=== PATIENT | male | born 1970 | race Caucasian/White ===

== ENCOUNTER → 2021-01-02 | Outpatient (CLI) | payer BC | LOC: LAB 09:20 | PROVIDERS: ATTEND Internal Medicine Cardiovascular Disease | DX: Z01.812 Encounter for preprocedural laboratory examination (principal); Z20.822 Contact with and (suspected) exposure to COVID-19 ==

== ENCOUNTER → 2021-01-02 | Outpatient (CLI) | payer OTHER ==
[2021-01-02 10:29] LABS: CALCIUM 9.5 mg/dL (8.5-10.1); POTASSIUM 4.3 mmol/L (3.5-5.1); TOTAL BILIRUBIN 1.1 mg/dL (0.2-1.0); TOTAL PROTEIN 7.2 g/dL (6.4-8.2)
[2021-01-02 10:36] LABS: ABSOLUTE NEUTROPHILS 4.8 thou/uL (1.4-8.2); BASOPHILS 1.4 % (0.0-2.0); EOSINOPHILS 1.8 % (0.0-3.0); HEMATOCRIT 52.4 % (42.0-52.0); HEMOGLOBIN 18.1 gm/dL (14.0-18.0); LYMPHOCYTES 20.1 % (24.0-44.0); MCH 29.2 pg (26.0-34.0); MCHC 34.6 g/dL (28.0-37.0); MCV 84.5 fL (80.0-100.0); MONOCYTES 8.7 % (1.0-8.0); PLATELET COUNT 199 thou/uL (150-400); RDW 13.6 % (10.5-14.5); WBC 7.1 thou/uL (4.0-11.0)
== END ==
LOC: CAT 09:03 → LAB 15:50
PROVIDERS: ATTEND Internal Medicine Cardiovascular Disease
DX: I48.91 Unspecified atrial fibrillation (principal)

== ENCOUNTER 2021-01-05 06:20 | Observation (INO) | payer BC ==
[~2021-01-05] VITALS: Ht 180.3 cm; Wt 77.1 kg
[2021-01-05] VITALS (8 sets, daily range): BP systolic 83–108; BP diastolic 51–76
[2021-01-05 07:36] LABS: ABSOLUTE NEUTROPHILS 4.1 thou/uL (1.4-8.2); BASOPHILS 1.4 % (0.0-2.0); EOSINOPHILS 1.8 % (0.0-3.0); HEMATOCRIT 49.7 % (42.0-52.0); HEMOGLOBIN 17.2 gm/dL (14.0-18.0); LYMPHOCYTES 21.9 % (24.0-44.0); MCH 29.5 pg (26.0-34.0); MCHC 34.7 g/dL (28.0-37.0); MCV 85.1 fL (80.0-100.0); MONOCYTES 9.5 % (1.0-8.0); PLATELET COUNT 179 thou/uL (150-400); POLYS 65.4 % (36.0-66.0); RBC 5.84 mil/uL (4.50-6.00); RDW 13.3 % (10.5-14.5); WBC 6.3 thou/uL (4.0-11.0)
[2021-01-05] MEDS ORDERED: SOTALOL 120 MG120 M1 PO (07:47)
[2021-01-05 07:48] LABS: CREATININE 1.1 mg/dL (0.7-1.3)
[2021-01-05] MEDS ORDERED: WARFARIN SODIUM5 MG PO (07:48)
[2021-01-05] MEDS ORDERED: WARFARIN SODIU7.5 MG PO (07:48)
[2021-01-05 07:53] LABS: APTT 38.8 Seconds (24.5-32.8); INR 2.11; PROTIME 22.2 Seconds (10.5-12.1)
[2021-01-05 07:54] LABS: ALBUMIN 3.7 g/dL (3.4-5.0); TOTAL BILIRUBIN 0.9 mg/dL (0.2-1.0); TOTAL PROTEIN 6.7 g/dL (6.4-8.2)
--- NOTE | 2021-01-05 09:22 | TEE ---
[facility] [place] [address] TRANSESOPHAGEAL ECHOCARDIOGRAM Name: BRENNAN GARCIA [facility] [id number] Admission: 01/05/21 Attend Phys: Christophe Seaman MD, Discharge: Date of : 70 Report #: [id number] THIS REPORT FOR: cc: Erick Brooke Jeffrey W. DO Santiago, Patrick MD [facility] ~ APPROVED REPORT Study performed: 01/05/2021 08:15:04 EXAM: Transesophageal Echocardiogram Patient Location: EP LAB Status: routine BSA: 1.97 HR: 104 bpm BP: 108/76 mmHg Rhythm: NSR Other Information Study Quality: Adequate Indications Afib/Pre ablation. Hx: Aortic valve replacement Procedure After obtaining informed consent, patient underwent transesophageal echo in the EP Lab. Type of Sedation : General Anesthesia Sedation was administered by Anesthesia. Transesophageal probe was inserted and advanced into esophagus without difficulty by Christophe Seaman MD. Echo enhancement indication: R/O Septal defect. Echo enhancement agent administered: Agitated Saline The KIRTI was performed without complications. Throughout the procedure, the blood pressure, pulse oximetry, cardiac rhythm, and rate were monitored. The patient tolerated the procedure without adverse effects. Recovery from conscious sedation was uneventful and vital signs were stable. Left Ventricle The left ventricle is normal size. There is normal LV segmental wall motion. There is normal left ventricular wall thickness. Left [facility] [address] [place] [address] TRANSESOPHAGEAL ECHOCARDIOGRAM Name: BRENNAN GARCIA Room #: REG CL [facility].#: [id number] Admission: 01/05/21 Attend Phys: Christophe Seaman, Discharge: Date of : 70 Report #: [id number] ventricular systolic function is normal. LVEF is 55%. Right Ventricle The right ventricle is normal size. The right ventricular systolic function is normal. Atria Left atrium is dilated. No thrombus is visualized in the left atrium or appendage. No shunting noted with contrast bubble injection. The right atrium size is normal. Aortic Valve Mechanical aortic valve is present. Trace aortic regurgitation. Mitral Valve The mitral valve is normal in structure. There is no mitral valve regurgitation noted. No evidence of mitral valve stenosis. Tricuspid Valve The tricuspid valve is normal in structure. There is no tricuspid valve regurgitation noted. Great Vessels The aortic root is normal in size. The ascending aorta is normal in size. Pericardium There is no pericardial effusion. <Conclusion> Consent was obtained Sedation performed by the anesthesiologist in the EP lab Esophageal probe was advanced without difficulty Left atrial appendage, large, no obvious mass or clot detected. Left atrium mildly dilated Normal left ventricle size/function Ejection fraction 55% Mechanical prostheses aortic valve, adequate cusp excursion Normal mitral valve structure and function Normal tricuspid valve structure and function No evidence of tricuspid valve insufficiency Normal aortic root size [facility] [address] [place] [address] TRANSESOPHAGEAL ECHOCARDIOGRAM Name: BRENNAN GARCIA Room #: REG [facility]..#: [id number] Admission: 01/05/21 Attend Phys: Christophe Seaman, Discharge: Date of : 70 Report #: [id number] No pericardial effusion Patient tolerated procedure well <ELECTRONICALLY SIGNED> By: Christophe Seaman MD, FACMaki 01/05/21920 0 0 Christophe Seaman MD, FACC /INF
--- NOTE | 2021-01-05 13:23 | 2DMMODE ---
[address] [address] 2 D/M-MODE ECHOCARDIOGRAM Name: BRENNAN GARCIA Room #: 206-P [facility] M.R.#: [id number] Admission: 01/05/21 Attend Phys: Christophe Seaman MD, Discharge: Date of : 70 Report #: [id number] THIS REPORT FOR: cc: Erick Brooke Jeffrey W. DO Santiago, Patrick MD [facility] ~ ADDENDUM APPROVED REPORT Study performed: 01/05/2021 13:01:34 EXAM: Limited 2D Echocardiogram Patient Location: Bedside Room #: [facility] Status: KARINA BSA: 1.97 HR: 67 bpm BP: 108/76 mmHg Rhythm: NSR Other Information Study Quality: Good/Pectus Indications STAT echo to rule out pericardial effusion. Chest pain post ablation. Left Ventricle The left ventricle is normal size. There is normal LV segmental wall motion. Left ventricular systolic function is normal. LVEF is 60-65%. Right Ventricle The right ventricle is normal size. The right ventricular systolic function is normal. Atria Left atrium is mildly dilated. The right atrium size is normal. Aortic Valve Mechanical aortic valve is present. Mitral Valve The mitral valve is normal in structure. [address] [address] 2 D/M-MODE ECHOCARDIOGRAM Name: BRENNAN GARCIA Room #: 206-P [facility] M.R.#: [id number] Admission: 01/05/21 Attend Phys: Christophe Seaman, Discharge: Date of : 70 Report #: [id number] Tricuspid Valve The tricuspid valve is normal in structure. Pulmonic Valve The pulmonary valve is normal in structure. Great Vessels IVC is normal in size and collapses <50% with inspiration. Pericardium There is no pericardial effusion. <Conclusion> Normal left ventricular size/wall thickness Ejection fraction 60% Normal right ventricular size/function Left atrium mildly dilated Mechanical aortic valve prostheses Normal mitral valve structure Normal aortic root size Normal IVC size and response to respiration No pericardial effusion <ELECTRONICALLY SIGNED> By: Christophe Seaman MD, FACC 01/05/21 1322 132 21 Christophe Seaman MD, FACC /INF
--- NOTE | 2021-01-05 15:56 | EKG ---
[place] [address] [facility] [place] [address] ELECTROCARDIOGRAM REPORT Name: BRENNAN GARCIA Room #: 206-[facility] M.R.#: [id number] Admission: 01/05/21 Attend Phys: Christophe Seaman MD, Discharge: Date of : 70 Report #: [id number] [facility] Test Date: 2021-01-05 Test Time: 13:00:57 Pat Name: BRENNAN GARCIA Department: Room: [facility] Gender: M [employer]: GEN : 1970 Requested By: Tab Florence Order Number: [id number] MD: Christophe Seaman Measurements Intervals [place] Rate: 68 P: 23 WV: 202 QRS: -13 QRSD: 93 T: 33 QT: 420 QTc: 447 Interpretive Statements Sinus rhythm Borderline prolonged WV interval Biatrial enlargement Abnormal R-wave progression, late transition ST elev, probable normal early repol pattern No previous ECG available for comparison Electronically Signed On 01-05-2021 15:56:00 CDT by Christophe Seaman [email or web address] <ELECTRONICALLY SIGNED> By: Christophe Seaman MD, [facility] 01/05/21 1556 1300 1300 Christophe Seaman MD, FAC /EPI
--- NOTE | 2021-01-05 16:26 | NUR ---
PATIENT ADMITTED TO CCU POST AFIB/FLUTTER ABLATION. RIGHT GROIN SITE DRESSING, CDI. AREA SOFT, NO HEMATOMA. POST PROCEDURE GROIN CHECKS AND VITALS CHARTED. ADMISSION ASSESSMENTS COMPLETED. AT BEDSIDE. SINUS RHYTHM ON THE MONTIOR. PATIENT OFF BEDREST AT 1700.
--- NOTE | 2021-01-05 23:29 | NUR ---
DR. ROUSE CALLED WANTED TO STAY OVER NIGHT AND SAID CARDIAOLOGY INFORMED HIM WANTED TO LEAVE AMA. TIME CLERK SAID SHE THEN COULD STAY OVER AND NOW THEY ARE NOT LEAVING AMA AND AGREED TO STAYING OVER NIGHT. CALL LIGHT WITHIN REACH IF NEEDS ANY ASSISTANCE.
[2021-01-06 00:05] VITALS: BP 101/55
--- NOTE | 2021-01-06 03:08 | NUR ---
PT IS ALERT AND ORIENTED X4. LUNGS ARE CLEAR ON ROOM AIR. ABDOMEN IS FLAT AND BOWEL SOUNDS POSTIVE. RESTING. VS STABLE. RIGHT GROIN SITE IS CLEAN AND DRY AND INTACT NO HEMATOMA NOTED . PLAN IS FOR DISCHARGE THIS MORNING. CALL LIGHT WITHIN REACH IF NEEDS ASSISTANCE PER NURSING.
[2021-01-06 04:23] LABS: INR 2.01; PROTIME 21.2 Seconds (10.5-12.1)
[2021-01-06 04:38] VITALS: BP 113/57
[2021-01-06 08:30] VITALS: BP 107/68
[2021-01-06 11:09] VITALS: BP 130/62
[2021-01-06 13:22] VITALS: BP 130/62
--- NOTE | 2021-01-06 15:34 | NUR ---
PATIENT STABLE THROUGH OUT THE MORNING. RIGHT GROIN SITE DRESSING, C/D/I. AREA SOFT, NO HEMATOMA. PATIENT READY FOR DISCHARGE PER CARIOLOGY. DR. COSTELLO SAW PATIENT TODAY. DISCHARGE SUMMARY REVIEWED WITH PATIENT AND SPOUSE. PATIENT DENIES ANY OUTESTIONS OR CONCERNS. AWARE OF MEDICATION REGIME. NO NEW SCRIPTS. AWARE OF FOLLOW UP APPOINTMENTS AND NEED TO HAVE INR CHECKED ON FRIDAY. IV DISCONTINUE. TELEMONITOR OFF. PATIENT ESCORTED OUT OF FACILITY IN WHEELCHAIR.
--- NOTE | 2021-01-09 12:24 | P ---
[facility] [place] [address] [place] [address] PROCEDURE REPORT Name: BRENNAN GARCIA Room #: 206-P [facility] M.R.#: [id number] Admission: 01/05/21 Attend Phys: Christophe Seaman MD, Discharge: 01/06/21 Date of : 70 Report #: [id number] THIS REPORT FOR: cc: Erick Brooke Jeffrey W. DO Couchonnal, Luis F. MD ~ DOC #: [id number] Tab Florence MD DATE OF SERVICE: 01/05/2021 PREOPERATIVE DIAGNOSIS: Atrial fibrillation/atrial flutter. POSTOPERATIVE DIAGNOSIS: Atrial fibrillation/atrial flutter. PROCEDURES PERFORMED: 1. Atrial fibrillation, CPT code 24276. 2. 3D mapping, CPT code 93476. 3. Intracardiac echo, CPT code 09954. 4. Focal ablation, CPT code 94054. 5. Second pathway ablation, CPT code 25676. HISTORY: The patient is a 50-year-old male with history of aortic stenosis, status post AVR, as well as atrial fibrillation, who has failed antiarrhythmic drugs and is here for ablation. Also, has history of atrial flutter. ANESTHESIA: The patient underwent general anesthesia with no anesthesia related complications. DESCRIPTION OF PROCEDURE: The patient underwent informed consent. We discussed the details of the procedure including the risks which include but not limited to bleeding, vascular damage, stroke, NC as well as damage to the kwethluk ____ system requiring permanent pacemaker. The patient was brought to the EP laboratory in a fasting and sedated state, prepped and draped in a sterile fashion. He underwent a KIRTI prior to the procedure, which showed no evidence of left atrial appendage thrombus. He was then prepped for the ablation. I injected lidocaine at the right groin region. Obtained access to the right femoral vein x 3, placing a 8, 9, and 7-Qatari short sheath using modified Seldinger technique. I then placed a decapolar catheter easily in the coronary sinus and an ICE catheter into the right atrium. At baseline, the patient was in atrial fibrillation. Using intracardiac ultrasound, I verified that there was a left common ostium and two right pulmonary veins. He did have a large left atrial appendage. This was merged with his cardiac CT scan and then the patient was systemically heparinized and a transseptal was performed using SL1 sheath and a [place] needle. This was straightforward and then I exchanged for the cryo sheath. I did have to dilate [address] [address] PROCEDURE REPORT Name: BRENNAN GARCIA Room #: 206-P [facility] Bethanie M.RGuilherme#: [id number] Admission: 01/05/21 Attend Phys: Christophe Seaman MD, Discharge: 01/06/21 Date of : 70 Report #: [id number] the groin as there was some scar tissue here with a 14-Qatari short sheath and then I was able to advance the cryo sheath into the left atrium without any issues. I then placed the Lasso catheter into the left atrium and created a detailed 3D voltage map of the left atrium. Then, we started isolating the pulmonary veins. The left common ostium underwent a 180 second freeze with isolation of the common ostium at 30 seconds. I then performed a second freeze of 150 seconds duration and then a third freeze somewhat lower on the common ostium of 240 seconds duration. Next, I moved to the right superior pulmonary vein and the vein underwent 125 second freeze isolating at 22 seconds, came off early due to cold temps. The second freeze was performed of 180 seconds duration with good temps. I then turned my attention to the right inferior pulmonary vein. This vein underwent a 180 seconds followed by 4-minute freeze and isolated during the second freeze which was on the lower aspect of the vein. There was never any phrenic nerve compromise while I paced with a decapolar catheter placed at the subclavian. Next, I performed a posterior wall isolation with four freezes anchored from the left superior pulmonary vein and two freezes anchored from the right superior pulmonary vein. Temperatures were monitored with esophageal probe. Each of these freezes was of 3 minutes duration. The patient then underwent DC cardioversion 200 joules and a repeat voltage map showed that all veins were isolated and the posterior roof region was now isolated as well. Atrial flutter ablation. Given history of atrial flutter, he was prepped for atrial flutter ablation. Preablation, the transisthmus conduction time was 60 milliseconds. Then ablation was performed at 70 cordero, 60 degrees and a continuous drag lesion was performed. The patient did have somewhat unusual isthmus anatomy which may have been related to his pectus excavatum. I felt that I was more septal than usual and then I quickly fell into a pouch with not as good ____, but continuous drag lesion was created and then I went and performed additional ablation within this pouch region that was along the anterior third of the isthmus. Post-ablation, the transisthmus conduction time was now 145 milliseconds. As such, the procedure was concluded. There was no evidence of pericardial effusion using intracardiac ultrasound. The patient received systemic protamine. Catheters and sheaths were pulled and a [id number] suture was performed using a 3-way stopcock closure technique. CONCLUSIONS: 1. Successful atrial fibrillation ablation with isolation of pulmonary veins. 2. Posterior wall isolation. 3. Successful atrial flutter ablation with bidirectional block. Tab Florence MD Maki/DAYAN/NADJA [facility] [address] [place] [address] PROCEDURE REPORT Name: BRENNAN GARCIA Room #: 206-P [facility].#: [id number] Admission: 01/05/21 Attend Phys: Christophe Seaman MD, Discharge: 01/06/21 Date of : 70 Report #: [id number] <ELECTRONICALLY SIGNED> By: Tab Florence MD 01/09/21 1224 1047 0313 Tab Florence MD /nt
== END 2021-01-06 13:52 | disposition home or self-care (01) ==
LOC: CATH 06:20 → 2N 12:55
PROVIDERS: ADMIT Internal Medicine Cardiovascular Disease; ATTEND Internal Medicine
DX: I48.91 Unspecified atrial fibrillation (principal); I48.92 Unspecified atrial flutter; Z79.01 Long term (current) use of anticoagulants; Z79.899 Other long term (current) drug therapy; Z95.2 Presence of prosthetic heart valve
CPT/HCPCS: 50555; 51489; 52265; 52266; 53307; 53310; 54022; 54118; 56462; 56525; 56526; 56527; 56529; 57092; 57114; 58574; 58586; 62110; 62900; 65020; 65040; 70005